=== PATIENT | male | born 2000 | race Caucasian/White ===

== ENCOUNTER 2025-08-26 01:08 | Day surgery (SDC) | payer OTHER, SELFPAY ==
--- NOTE | 2025-08-21 14:18 | SUR.PREOP ---
[facility] has started construction of its new state of the art ER which will open Spring 2026. With this, we anticipate parking may be a challenge for some our surgical patients and families. Parking spaces are limited but are available for all Surgical, obstetrics, and ER patients sharing this lot. If you arrive and find you are having a hard time finding a parking space, please note that we understand the challenges, please drive around the hospital and park near Hospital Entrance 1. When you enter this entrance, you can ask a volunteer to direct or take you back to the surgical waiting area to check in. We appreciate everyone?s understanding of these expected challenges while we build for your future. Report to the Outpatient Waiting Room, entrance under the green pavilion located off [address], at time _0600_ on date _08/26/2025_. Planned Procedure Time: _0730_.? Time changes happen often and if your time is changed the preop area will call you the afternoon before. - You and your visitor will be asked to self-screen and do not enter if you have any COVID symptoms. Please call surgeon if you need to reschedule. - A mask is optional within the hospital at this time. Patients may have clear liquids (water, carbonated beverages, clear teas, apple juice) until 3 hours (0430) prior to surgery with a maximum of 20 ounces. - No food from midnight until time of surgery and no smoking, or chewing tobacco (or any form of nicotine). No chewing gum, candy or mints. Take only the following medications with a SIP of water on the morning of surgery: _NA_ DO NOT STOP ANY OF YOUR OTHER PRESCRIPTION MEDICATIONS PRIOR TO SURGERY EXCEPT THE FOLLOWING Hold all vitamins and supplements for 3 days per anesthesiologist. Medications to discontinue per physician _NA_ Date to take last dose_NA_ Please no make-up, nail indonesian, hairspray, perfume, deodorant, or body powder the day of surgery.? No jewelry (including any body piercings) or valuables the day of surgery, leave them at home.? Please take a shower or bath the night before, or the morning of, surgery with an antibacterial soap.? Wear comfortable, loose fitting clothing. - Jewelry must be removed prior to entering the operating room.? Rings and piercings that are not removed may be cut off. - The hospital will not accept responsibility for valuables.? - Please leave all valuables, including medications, at home the day of surgery. If you are going home after surgery, a licensed auto parts delivery driver must drive you home.? - NO public transportation without another adult if you receive anesthesia. - We recommend that an adult stay with you for 24 hours following discharge. - We also recommend that you do not drive, make important decision, drink alcoholic beverages, or take any drugs that were not prescribed by your health care provider for at least 24 hours after your discharge time. Follow any additional instructions given to you from your surgeon. Telephone instructions given to _DIAN_and asked if any additional questions and then verbalized understanding. Patient advised to call surgeon office or pre surgery nurse liaison [phone] if any additional questions.
[2025-08-21 14:30] VITALS: BMI 29.8
--- NOTE | 2025-08-24 15:27 | PM.IMHP2 ---
H&P: HPI History of Present Illness Date/Time: 08/24/25 15:27 Chief Complaint: Recurrent tonsillitis recurrent adenoiditis tonsil hypertrophy adenoid hypertrophy Narrative: planned surgical procedure Review of Systems Review of Systems: All systems reviewed & are unremarkable except as noted in HPI and below [facility] Past Medical History Medical History (Updated 05/15/25 @ 11:00 by Marianne Hong) No active medical problems Surgical History Surgical History (Updated 05/15/25 @ 11:00 by Marianne Hong) No history of previous surgery Social History Social History (System 05/15/25 @ 11:00 by Marianne Hong) Smoking status: Never smoker Second hand tobacco smoke exposure: No Additional smoking assessment comments: VAPED IN PAST Alcohol intake: current Alcohol use details: SOCIALLY Substance use: never Substance use type: does not use Living arrangements: with family Spiritual care concerns: No Meds Home Medications and Allergies Home Medications ?Medication ?Instructions ?Recorded ?Confirmed ?Type No Home Medications 02/28/25 08/21/25 History Allergies Allergy/AdvReac Type Severity Reaction Status Date / Time No Known Allergies Allergy Verified 08/21/25 14:12 Exam Narrative: chronic appearing tonsils and adenoids Assessment and Plan Assessment and plan (1) Recurrent tonsillitis: Code(s): J03.91 - Acute recurrent tonsillitis, unspecified Status: Acute Assessment and Plan: plan or tonsillectomy adenoidectomy risks were discussed bleeding infection damage to surrounding structures need further procedures change in taste change thought could be permanent time-out for time off school inherent risk of narcotic use postoperative bleeding infection bleeding 5-7% chance. Damage to any structure of the clavicles by myself damage to any structure induction and maintenance of anesthesia including vocal cord paralysis failure to resolve symptoms if not due to tonsils or adenoids. Tongue numbness oral cavity numbness damage to dentition. (2) Snoring: Code(s): R06.83 - Snoring Status: Acute (3) Adenoid hypertrophy: Code(s): J35.2 - Hypertrophy of adenoids Status: Acute
[2025-08-26] VITALS (9 sets, daily range): BP systolic 123–148; BP diastolic 70–95; PULSE 60–88; RESP 13–20; TEMP 36.2–36.7; O2SAT 96–100
--- OUTSIDE RECORDS SUMMARY | 2025-08-26 01:11 | XMS_ITS | Clinical Summary ---
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 Gender Identity Not on file Sexual Orientation Not on file Plan of Treatment Health Maintenance Due Date Last Done Comments Annual Physical 2005 HPV Vaccines (1 - Male 3-dos e series) 2017 Meningococcal B Vaccine (1 o f 2 - Standard) 2018 Hepatitis C 2020 DTaP, Tdap and Td Vaccines ( 1 - Tdap) 2021 Hepatitis B Vaccines (1 of 3 - 19+ 3-dose series) 2021 COVID-19 Vaccine (1 - 2024-2 6 season) 2025 Influenza Adult (#1) 2025 Hepatitis A Vaccines Aged Out No long er eligible based on patient's age to complete this topic Meningococcal Vaccine Aged Out No manpreet diane eligible based on patient's age to complete this topic Pneumococcal Vaccine: Pediat rics (0 to 5 Years) and At-Risk Patients (6 to 49 Years) Aged Out No longer eligible b ased on patient's age to complete this topic RSV Immunizations Under 20 Months Aged Out No longer eligible based on patient's age to complete this topic
[2025-08-26] MEDS: ACETAMINOPHEN 500 MG TABLET 1000 MG PO (06:35)
[2025-08-26] MEDS: LACTATED RINGERS 1,000 ML 30 ML IV CONT (06:35)
--- NOTE | 2025-08-26 06:39 | WPDANESEPPF ---
Anes - Initial Pre Proc Eval Procedure: Operation Date: 08/26/25 07:30 Proposed Procedures p Tonsillectomy And Adenoidectomy - Isaak Lieberman MD Date/Time: 08/26/25 06:39 Surgeon: Isaak Lieberman MD Pre Op Diagnosis: chronic & acute recurrent tonsillitis, hypert tons Patient Data Age: 25 Gender: M Height: 2.01 m Weight: 120.25 kg Allergies Allergy/AdvReac Type Severity Reaction Status Date / Time No Known Allergies Allergy Verified 08/21/25 14:12 Home Medications ?Medication ?Instructions ?Recorded ?Confirmed ?Type No Home Medications 02/28/25 08/21/25 History Patient hx anesthesia problems: none Family hx anesthesia problems: none Results Review: All pre-operative results and documents have been reviewed as part of the pre-operative evaluation. [facility] Past Medical History Medical History No active medical problems Surgical History Surgical History No history of previous surgery Social History Social History Smoking status: Never smoker Second hand tobacco smoke exposure: No Additional smoking assessment comments: VAPED IN PAST Alcohol intake: current Alcohol use details: SOCIALLY Substance use: never Substance use type: does not use Living arrangements: with family Spiritual care concerns: No Anes - Eval Final PreProcedure Day of Procedure 08/26/25 06:39 Patient weight: overweight Heart: regular rate and rhythm Lungs: clear to auscultation Airway: Mallampati scale class II Neurological: alert and oriented Last oral intake: >/= 8 hours ASA classification: II Emergent: no Anesthetic plan: proceed Anesthesia type and monitoring: general ETT and standard monitoring Results Review: All pre-operative results and documents have been reviewed as part of the pre-operative evaluation. Informed Consent: The patient's anesthetic plan and its attendant risks and benefits were discussed with the patient/family/POA. Questions were solicited and answers provided to the satisfaction of the patient/family/POA.
--- NOTE | 2025-08-26 07:22 | WPDHPUPDATE1 ---
History and Physical Update Update Date/Time: 08/26/25 07:22 History and Physical has been reviewed, including an updated exam of the patient. There are NO changes in the patient's condition. Risks, benefits, and alternatives have been discussed and questions answered. Patient agrees to proceed with procedure.
--- NOTE | 2025-08-26 07:52 | S_PTH ---
PATIENT: Ricky Henriquez LOC: [facility] U#:[id number] AGE/SX: 25/M ROOM: RE08/26/[address]: Isaak Lieberman MD : 2000 BED: DIS: 08/26/2025 SPEC #: [id number] RECD: 08/26/25 10:44 STATUS: BLAIR CHAHAL #: [id number] JM: 08/26/25 07:[address]: Isaak Lieberman DEPT: [facility] Surgical RECD BY: Kaycee Zapien ENTERED: 08/26/25 10:45 SP TYPE: Surgical OTHR DR: Pankaj Delcid MD Tissues: A - Tonsils Procedures: Gross and Microscopic Level 2
--- NOTE | 2025-08-26 08:27 | P.OP_ITS ---
Procedure Note - Detailed Date of Procedure 08/26/25 Pre-op Diagnosis chronic & acute recurrent tonsillitis, hypert tons Post-op Diagnosis Same Procedure Performed 1. Tonsillectomy Surgeon Isaak Lieberman MD Anesthesia General Indications Recurrent tonsillitis Findings Chronic appearing tonsils. No adenoids present. Description of Procedure Patient identified consent verified in the preoperative holding area. Patient brought to the operating room. Performed. General anesthesia induced endotracheal tube secured. Patient prepped draped position procedure confirmed 2nd time-out performed. McIvor mouth gag inserted revealing tonsils described above. They were removed bilaterally in extracapsular plane using Coblator at a setting of media medium. Any bleeding was also controlled gallbladder. In- between tonsils McIvor mouth gag was lowered reopened. This was bilateral procedure. Total blood loss 1 cc. After the tonsils were out the McIvor mouthgag sorry red rubber catheters were placed bilaterally revealing no adenoids red rubber catheters removed. Anesthesia Valsalva had no bleeding McIvor mouth gag removed. Patient tolerated the procedure well total blood loss 1 cc. Estimated Blood Loss 1 Drains No Packing No Pathology Yes Complications No immediate complications Condition Stable Disposition PACU [facility] Billing Surgery - Charge Forward: Surgery Billing
[2025-08-26] MEDS: fentaNYL CITRATE INJ (*CRX) 100 MCG/2 ML VIAL 25 MCG IV PUSH ×2 (08:38→08:44)
[2025-08-26] MEDS: oxyCODONE HCL (*CRX) 5 MG TAB IR PO (09:43)
== END 2025-08-26 10:12 | disposition home or self-care (01) ==
PROVIDERS: PCP Family Medicine; Visit Provider Otolaryngology
PROC: (CPT 42826; principal; 2025-08-26 07:30)
DX: J35.01 Chronic tonsillitis (principal); R06.83 Snoring; G89.18 Other acute postprocedural pain; Z87.891 Personal history of nicotine dependence
CPT/HCPCS: 42826; 88302; A9270; J1100; J1938; J2003; J2250; J2405; J2704; J3010; J7120